=== PATIENT | male | born 1970 | race Caucasian/White ===

== ENCOUNTER 2023-12-10 13:52 | Emergency (ER) | payer MEDICARE, MEDICAID ==
[~2023-12-10] VITALS: Ht 162.6 cm; Wt 98.0 kg
[2023-12-10 13:58] VITALS: TEMP 98.2; O2SAT 95
[2023-12-10] MEDS ORDERED: KETOROLAC 60MG/2ML VIAL IM ONE (14:30)
[2023-12-10] MEDS ORDERED: KETO10TA2 MT (14:34)
[2023-12-10 17:10] VITALS: BP 170/80; PULSE 100; RESP 18
[2023-12-10] MEDS ORDERED: KETOROLAC 60MG/2ML VIAL IM NR (17:15)
== END 2023-12-10 17:11 | disposition home or self-care (01) ==
LOC: ER 13:52
DX: M25.572 Pain in left ankle and joints of left foot (principal); M79.602 Pain in left arm; Z98.890 Other specified postprocedural states
CPT/HCPCS: 99283; 96372; J1885